=== PATIENT | female | born 1990 | race Caucasian/White ===

== ENCOUNTER 2025-09-17 16:47 | Emergency (ER) | payer OTHER | END 2025-09-17 19:03 | LOC: ED 16:47 | DX: S02.2XXA Fracture of nasal bones, initial encounter for closed fracture (principal); F39 Unspecified mood [affective] disorder; X83.8XXA Intentional self-harm by other specified means, initial encounter; Y93.89 Activity, other specified; Y92.89 Other specified places as the place of occurrence of the external cause; Y99.8 Other external cause status ==

== ENCOUNTER 2025-09-23 10:56 | Emergency (ER) | payer OTHER ==
[~2025-09-23] VITALS: Ht 162.5 cm; Wt 63.5 kg
[2025-09-23 11:36] LABS: BASO # 0.1 10*3/uL (0.0-0.1); BASO % 0.6 % (0.0-1.0); EOS # 0.1 10*3/uL (0.0-0.4); EOS % 0.9 % (1.0-4.0); MEAN CELL VOLUME 91.1 fl (81.0-99.0); MEAN CORPUSCULAR HGB 28.5 pg (27.0-31.0); MEAN PLATELET VOLUME 9.0 fl (9.6-12.3); MONO # 0.4 10*3/uL (0.1-1.0); MONO % 4.9 % (3.0-9.0); NEUT # 6.4 10*3/uL (2.3-7.9); NEUT % 72.2 % (47.0-73.0); NUCLEATED RED BLOOD CELL 0.0 % (0.0-0.0); NUCLEATED RED BLOOD CELL 0.0 10*3/uL (0.0-0.0); PLATELET COUNT AUTOMATED 330 10*3/uL (130-400); RED CELL DISTRI WIDTH 12.1 % (0-14.5)
[2025-09-23 11:58] LABS: BUN 18 mg/dl (9-23); SGPT/ALT 18 U/L (5-49)
[2025-09-23 11:59] LABS: BETA-HCG, QUANT < 3.0 mIU/mL (3-10)
[2025-09-23] MEDS ORDERED: Acetaminophen/Oxycodone 5 MG/325 MG TABLET PO ONE (12:45)
[2025-09-23 13:01] LABS: BILIRUBIN Negative (Negative); BLOOD 2+ (Negative); CLARITY Clear (Clear); COLOR Yellow (Yellow); KETONE Negative (Negative); LEUKO ESTERASE 2+ (Negative); NITRITE Negative (Negative); PH 5.5 (4.5-8.0); SPECIFIC GRAVITY >= 1.030 (1.001-1.030); UROBILINOGEN 0.2 E.U./dl (0.0-1.0)
[2025-09-23] MEDS ORDERED: Sulfamethoxazole/Trimethopri 1 TAB TAB PO ONE (13:10)
[2025-09-23] MEDS ORDERED: SEPTDS PO (13:12)
[2025-09-23 13:26] LABS: BACTERIA 2+; RBC 21-30 rbc/hpf (0-2); WBC 21-30 wbc/hpf (0-5)
[2025-09-23] MEDS ORDERED: METRONIDAZOLE500 M1 PO (13:41)
== END 2025-09-23 13:24 ==
LOC: ED 10:56
PROVIDERS: Internal Medicine
DX: N39.0 Urinary tract infection, site not specified (principal)